=== PATIENT | male | born 1950 | race Hispanic/Latino ===

== ENCOUNTER 2017-12-30 13:46 | Outpatient (CLI) | payer MEDICARE, MEDICAID ==
--- NOTE | 2017-12-30 15:41 | RAD ---
THREE VIEWS RIGHT KNEE: Date: 12-30-17 History: Chronic right knee pain and shoulder pain. FINDINGS: There is tricompartment osteophytosis. There is narrowing of the medial joint compartment. There is a lso suggestion of narrowing of the patellofemoral joint. Very small joint effusion is seen in a supra patellar location. Surgical clips are seen at the medial aspect lower thigh. There are calcifications seen adjacent to the medial femoral condyle, likely related to prior injury. No fracture or dislocation is seen. No other osseous abnormality. IMPRESSION: 1. Osteoarthritis right knee with very small joint effusion present. 2. No acute osseous abnormality right knee. POS: [facility]
--- NOTE | 2017-12-30 15:46 | RAD ---
RIGHT SHOULDER THREE VIEW 12/30/17 HISTORY: Chronic pain. COMPARISON: None. FINDINGS: No acute fracture. No malalignment. Acromioclavicular alignment is normal. Visualized ribs are unrema rkable. There appear to be small erosions of the greater tuberosity likely from underlying interstitial teari ng of the rotator cuff. IMPRESSION: No acute fracture or malalignment. POS: [facility]
== END 2017-12-30 13:47 | disposition home or self-care (01) ==
LOC: MADRAD 13:46
PROVIDERS: ATTEND Orthopaedic Surgery
DX: M25.511 Pain in right shoulder (principal); M25.561 Pain in right knee; M17.11 Unilateral primary osteoarthritis, right knee

== ENCOUNTER 2019-03-31 13:23 | Inpatient (IN) | payer MEDICARE, MEDICAID ==
[2019-03-31] MEDS ORDERED: Dextrose 50% Abboject 50 ML SYRINGE SLOW IVP PRN (16:09)
[2019-03-31] MEDS ORDERED: Dextrose 5% in Water 1,000 ML IV PRN (16:09)
[2019-03-31] MEDS ORDERED: HumaLOG 300 UNITS/3 ML VIAL SC PRN (16:09)
[2019-03-31] MEDS ORDERED: HYDROcodone/Acetaminophen 10/325 mg Tablet PO PRN (17:00)
[2019-03-31] MEDS: HYDROcodone/Acetaminophen 10/325 mg Tablet PO PRN (17:05)
[2019-03-31] MEDS: Carvedilol 6.25 MG TAB PO SCH (17:07)
[2019-03-31] MEDS: metFORMIN 500 MG TAB PO SCH (17:07)
[2019-03-31] MEDS: Atorvastatin Calcium 10 MG TAB PO SCH (20:29)
[2019-03-31] MEDS: Aspirin 81 mg Enteric Coated Tablet PO SCH (20:29)
--- NOTE | 2019-04-01 01:49 | HP ---
PRIMARY CARE PHYSICIAN: Evelia Otero NP in [facility]. ORTHOPEDIC SURGEON: Stanley Portillo MD REASON FOR ADMISSION: Skilled rehab in [facility] after recent surgery. HISTORY OF PRESENT ILLNESS: Mr. Garcia is a very pleasant 68-year-old male with multiple history of chronic medical conditions including hypertension, multivessel CABG, diabetes. He had been having chronic right knee pain for several years. This is associated with left lower extremity deformity. The patient have continued pain and had failed conservative management, so he decided for a total knee replacement. After discussing with his Ortho, Dr. Portillo, the patient underwent right knee arthroplasty for right knee osteoarthritis on 03/28/2019 at [facility]. The patient did well postoperatively with unremarkable postoperative course. Overall, chronic medical conditions have been stable with his chronic medications. Per hospital report, prior to hospital discharge, patient has started walking some. He is weightbearing as tolerated with no issues. Overall, pain is adequately controlled with current pain medications. He was subsequently transferred to [facility] on 03/31/2019 to continue rehab. Labs prior to transfer, hemoglobin 10.8, hematocrit 32.1, WBC 12.3 on 03/31/2019. Baseline CBC on 03/29/2019, WBC 15.2, hemoglobin 11, hematocrit 32.9. When evaluated, the patient reports he is doing fine, no new issues reported at this time. PAST MEDICAL HISTORY: Hypertension, diabetes, multivessel CABG, dyslipidemia, CHF, CAD, status post [place] with cardiogenic shock, status post CABG, obesity 35.1, hypothyroidism, CKD type 2, chronic diastolic heart failure, compensated, ischemic cardiomyopathy with EF of 45% to 50%. Latest echo 2 months ago, unchanged. CAD without angina pectoralis, status post CABG. Depression and anxiety, [place] in 2016. SURGICAL HISTORY: Coronary artery bypass on 12/15/2016, hospitalization [place] on 12/03/2016. FAMILY HISTORY: noncontributory. SOCIAL HISTORY: Former smoker. No alcohol. No illicit drug use. ALLERGIES: PRAVASTATIN, but tolerant to ATORVASTATIN. CURRENT MEDICATIONS: 1. Aspirin 81 mg p.o. b.i.d. 2. Atorvastatin 20 mg p.o. at bedtime. 3. Carvedilol 6.25 mg p.o. b.i.d. 4. Hydrocodone 10/325 mg p.o. 1 to 2 q.4 hours p.r.n. 5. Levothyroxine 75 mcg p.o. q.a.m. 6. Losartan 100 mg p.o. at bedtime. 7. Metformin 1000 mg p.o. b.i.d. 8. Pantoprazole 40 mg p.o. at bedtime. REVIEW OF SYSTEMS: GENERAL: Denies fever, chills, lethargy. Reports general weakness and fatigue. HEENT: Denies acute visual changes or hearing changes. No cold symptoms. CARDIAC: Denies chest pain, palpitations. Reports intermittent leg edema. No dyspnea on exertion. No pain with breathing. RESPIRATORY: No shortness of breath, wheezing, sputum production, or bloody sputum. GASTROINTESTINAL: No nausea, vomiting, abdominal pain, diarrhea, or constipation. GENITOURINARY: No dysuria, hematuria, frequency, urgency, or incontinence. MUSCULOSKELETAL: As per HPI. PSYCHIATRIC: Denies depression, anxiety, or insomnia. ENDOCRINE: No heat or cold intolerance. SKIN: No rashes. No pruritus. No other lesions aside from the postoperative site. PHYSICAL EXAMINATION: VITAL SIGNS: Blood pressure 174/76, temp 99, pulse 68, respirations 20, O2 sats 98% on room air. Weight 187 pounds. Height 5 feet. GENERAL: The patient is awake, alert, and oriented x3. Not in distress. HEENT: Normocephalic, atraumatic. PERRL. Intact EOM. Anicteric sclerae. Oral mucosa is moist. NECK: Supple. No LAD. No JVD. CHEST: Normal excursion. Clear to auscultation bilaterally. CARDIAC: RRR. Normal S1 and S2. ABDOMEN: Soft, obese, nondistended. Normoactive bowel sounds. Nontender. No rebound. No guarding. Negative CVA tenderness bilaterally. EXTREMITIES: Right lower extremity is edematous compared to the left. SKIN: Postoperative site in the right anterior knee is covered with clean dressing. No surrounding erythema. Not warm to touch. Pulses 2+ symmetrically. ASSESSMENT: 1. Deconditioning secondary to general weakness. 2. Status post right total knee replacement on 03/29/2019 for severe arthritis of the right knee. 3. Hypertension. 4. Congestive heart failure, compensated with EF of 45% to 50%. 5. Diabetes type 2, non-insulin dependent. 6. Dyslipidemia. 7. Hypothyroidism. 8. Coronary artery disease, status post coronary artery bypass graft. 9. History of myocardial infarction. 10. Gastroesophageal reflux disease. 11. Unsteady gait. PLAN: 1. The patient is admitted to Swing bed for purposes of skilled rehab. To consult PT/OT for eval and treat. 2. Continue all current medications as modified per list. 3. Incentive spirometry every 4 hours while awake for 2 more weeks. 4. Ice and elevate leg to decrease redness and swelling at the minimum of twice daily for 2 to 4 weeks as needed. 5. Accu-Chek q.a.m. with sliding scale coverage, mild algorithm. 6. Wound Care, Tegaderm Plus 2 pads x2 weeks, changed weekly. 7.DVT prophylaxis with ASA 81 mg BID. 8.Follow up with Dr. Portillo on 04/11/2019 at 1:15 p.m. 9. Further recommendations depending on the hospital course. ESTIMATED LENGTH OF STAY: 2 to 3 weeks. CODE STATUS: Patient reports FULL CODE. Job ID: [id number] [facility]
[2019-04-01] MEDS: HYDROcodone/Acetaminophen 10/325 mg Tablet PO PRN ×2 (05:16→20:22)
[2019-04-01] MEDS: Levothyroxine Sodium 75 MCG TAB PO SCH (05:17)
[2019-04-01] MEDS: metFORMIN 500 MG TAB PO SCH ×2 (08:18→17:20)
[2019-04-01] MEDS: Aspirin 81 mg Enteric Coated Tablet PO SCH ×2 (08:18→20:18)
[2019-04-01] MEDS: Carvedilol 6.25 MG TAB PO SCH ×2 (08:18→17:20)
[2019-04-01] MEDS ORDERED: HYDROcodone/Acetaminophen 10/325 mg Tablet PO PRN ×3 (12:58→18:57)
[2019-04-01] MEDS ORDERED: traMADol HCl 50 MG TAB PO PRN ×3 (12:59→18:58)
[2019-04-01] MEDS ORDERED: Zolpidem Tartrate 5 MG TAB PO PRN (13:00)
[2019-04-01] MEDS: Polyethylene Glycol 3350 17 GM Packet PO PRN (13:35)
[2019-04-01] MEDS: Atorvastatin Calcium 10 MG TAB PO SCH (20:17)
[2019-04-01] MEDS: Senokot S 8.6-50 MG TAB PO SCH (20:17)
[2019-04-01] MEDS: Ferrous Gluconate 324 MG TAB PO SCH (20:17)
[2019-04-01] MEDS: Losartan 25 MG TAB PO SCH (20:17)
[2019-04-02] MEDS: Levothyroxine Sodium 75 MCG TAB PO SCH (05:10)
[2019-04-02] MEDS: traMADol HCl 50 MG TAB PO PRN ×2 (05:10→16:02)
[2019-04-02] MEDS: Aspirin 81 mg Enteric Coated Tablet PO SCH ×2 (08:42→20:42)
[2019-04-02] MEDS: metFORMIN 500 MG TAB PO SCH ×2 (08:42→17:15)
[2019-04-02] MEDS: Ferrous Gluconate 324 MG TAB PO SCH ×2 (08:43→20:43)
[2019-04-02] MEDS: Spironolactone 25 MG TAB PO SCH (08:43)
[2019-04-02] MEDS: Senokot S 8.6-50 MG TAB PO SCH ×2 (08:43→20:42)
[2019-04-02] MEDS: Carvedilol 6.25 MG TAB PO SCH ×2 (08:43→17:14)
[2019-04-02] MEDS: HYDROcodone/Acetaminophen 10/325 mg Tablet PO PRN (20:41)
[2019-04-02] MEDS: Atorvastatin Calcium 10 MG TAB PO SCH (20:42)
[2019-04-02] MEDS: Losartan 25 MG TAB PO SCH (20:42)
[2019-04-03] MEDS: HYDROcodone/Acetaminophen 10/325 mg Tablet PO PRN ×3 (03:28→20:05)
[2019-04-03] MEDS: Levothyroxine Sodium 75 MCG TAB PO SCH (05:33)
[2019-04-03] MEDS: Polyethylene Glycol 3350 17 GM Packet PO PRN (07:30)
[2019-04-03] MEDS: Spironolactone 25 MG TAB PO SCH (07:30)
[2019-04-03] MEDS: Senokot S 8.6-50 MG TAB PO SCH ×2 (07:30→21:20)
[2019-04-03] MEDS: Ferrous Gluconate 324 MG TAB PO SCH ×2 (07:30→21:15)
[2019-04-03] MEDS: metFORMIN 500 MG TAB PO SCH ×2 (07:30→17:19)
[2019-04-03] MEDS: Aspirin 81 mg Enteric Coated Tablet PO SCH ×2 (07:31→21:18)
[2019-04-03] MEDS: Carvedilol 6.25 MG TAB PO SCH ×2 (07:31→17:19)
[2019-04-03] MEDS ORDERED: Fleet Enema 133 ML BOT FS SCH (19:45)
[2019-04-03] MEDS: Losartan 25 MG TAB PO SCH (21:00)
[2019-04-03] MEDS: Atorvastatin Calcium 10 MG TAB PO SCH (21:19)
[2019-04-04] MEDS: Levothyroxine Sodium 75 MCG TAB PO SCH (05:59)
[2019-04-04] MEDS: HYDROcodone/Acetaminophen 10/325 mg Tablet PO PRN ×3 (06:02→22:14)
[2019-04-04] MEDS: Polyethylene Glycol 3350 17 GM Packet PO PRN (08:20)
[2019-04-04] MEDS: Senokot S 8.6-50 MG TAB PO SCH ×2 (08:21→21:06)
[2019-04-04] MEDS: Spironolactone 25 MG TAB PO SCH (08:21)
[2019-04-04] MEDS: Ferrous Gluconate 324 MG TAB PO SCH ×2 (08:21→21:05)
[2019-04-04] MEDS: Aspirin 81 mg Enteric Coated Tablet PO SCH ×2 (08:22→21:05)
[2019-04-04] MEDS: metFORMIN 500 MG TAB PO SCH ×2 (08:22→17:20)
[2019-04-04] MEDS: Carvedilol 6.25 MG TAB PO SCH ×2 (08:22→17:20)
[2019-04-04] MEDS: Losartan 25 MG TAB PO SCH (21:05)
[2019-04-04] MEDS: Atorvastatin Calcium 10 MG TAB PO SCH (21:05)
[2019-04-05] MEDS: Levothyroxine Sodium 75 MCG TAB PO SCH (05:24)
[2019-04-05] MEDS: Polyethylene Glycol 3350 17 GM Packet PO PRN (07:55)
[2019-04-05] MEDS: Senokot S 8.6-50 MG TAB PO SCH ×2 (07:56→20:22)
[2019-04-05] MEDS: metFORMIN 500 MG TAB PO SCH ×2 (07:56→16:14)
[2019-04-05] MEDS: Carvedilol 6.25 MG TAB PO SCH ×2 (07:57→16:14)
[2019-04-05] MEDS: Ferrous Gluconate 324 MG TAB PO SCH ×2 (07:57→20:21)
[2019-04-05] MEDS: Aspirin 81 mg Enteric Coated Tablet PO SCH ×2 (07:58→20:21)
[2019-04-05] MEDS: Spironolactone 25 MG TAB PO SCH (07:58)
[2019-04-05] MEDS: HYDROcodone/Acetaminophen 10/325 mg Tablet PO PRN ×2 (11:49→16:13)
[2019-04-05] MEDS: Losartan 25 MG TAB PO SCH (20:21)
[2019-04-05] MEDS: Atorvastatin Calcium 10 MG TAB PO SCH (20:21)
[2019-04-06] MEDS: HYDROcodone/Acetaminophen 10/325 mg Tablet PO PRN ×3 (02:04→20:29)
[2019-04-06] MEDS: Levothyroxine Sodium 75 MCG TAB PO SCH (04:59)
[2019-04-06] MEDS: Polyethylene Glycol 3350 17 GM Packet PO PRN (08:19)
[2019-04-06] MEDS: Spironolactone 25 MG TAB PO SCH (08:19)
[2019-04-06] MEDS: Senokot S 8.6-50 MG TAB PO SCH ×2 (08:19→20:28)
[2019-04-06] MEDS: metFORMIN 500 MG TAB PO SCH ×2 (08:20→17:23)
[2019-04-06] MEDS: Aspirin 81 mg Enteric Coated Tablet PO SCH ×2 (08:20→20:28)
[2019-04-06] MEDS: Carvedilol 6.25 MG TAB PO SCH ×2 (08:20→17:23)
[2019-04-06] MEDS: Ferrous Gluconate 324 MG TAB PO SCH ×2 (08:20→20:28)
[2019-04-06] MEDS: Atorvastatin Calcium 10 MG TAB PO SCH (20:28)
[2019-04-06] MEDS: Losartan 25 MG TAB PO SCH (20:28)
[2019-04-07] MEDS: Levothyroxine Sodium 75 MCG TAB PO SCH (05:20)
[2019-04-07] MEDS: Ferrous Gluconate 324 MG TAB PO SCH ×2 (08:07→20:49)
[2019-04-07] MEDS: Spironolactone 25 MG TAB PO SCH (08:07)
[2019-04-07] MEDS: Senokot S 8.6-50 MG TAB PO SCH ×2 (08:07→20:50)
[2019-04-07] MEDS: Aspirin 81 mg Enteric Coated Tablet PO SCH ×2 (08:07→20:49)
[2019-04-07] MEDS: metFORMIN 500 MG TAB PO SCH ×2 (08:07→17:38)
[2019-04-07] MEDS: Carvedilol 6.25 MG TAB PO SCH ×2 (08:07→17:38)
[2019-04-07] MEDS: HYDROcodone/Acetaminophen 10/325 mg Tablet PO PRN (11:30)
[2019-04-07] MEDS: Atorvastatin Calcium 10 MG TAB PO SCH (20:49)
[2019-04-07] MEDS: Losartan 25 MG TAB PO SCH (20:50)
[2019-04-08] MEDS: HYDROcodone/Acetaminophen 10/325 mg Tablet PO PRN ×2 (00:15→13:17)
[2019-04-08] MEDS: Levothyroxine Sodium 75 MCG TAB PO SCH (05:26)
[2019-04-08] MEDS: Senokot S 8.6-50 MG TAB PO SCH ×2 (08:40→21:01)
[2019-04-08] MEDS: metFORMIN 500 MG TAB PO SCH ×2 (08:40→17:06)
[2019-04-08] MEDS: Spironolactone 25 MG TAB PO SCH (08:40)
[2019-04-08] MEDS: Aspirin 81 mg Enteric Coated Tablet PO SCH ×2 (08:40→21:00)
[2019-04-08] MEDS: Ferrous Gluconate 324 MG TAB PO SCH ×2 (08:41→21:01)
[2019-04-08] MEDS: Carvedilol 6.25 MG TAB PO SCH ×2 (08:41→17:06)
[2019-04-08] MEDS: Losartan 25 MG TAB PO SCH (21:00)
[2019-04-08] MEDS: Atorvastatin Calcium 10 MG TAB PO SCH (21:01)
[2019-04-09] MEDS: HYDROcodone/Acetaminophen 10/325 mg Tablet PO PRN ×2 (04:57→20:55)
[2019-04-09] MEDS: Levothyroxine Sodium 75 MCG TAB PO SCH (04:57)
[2019-04-09] MEDS: Spironolactone 25 MG TAB PO SCH (08:33)
[2019-04-09] MEDS: Ferrous Gluconate 324 MG TAB PO SCH ×2 (08:33→20:54)
[2019-04-09] MEDS: metFORMIN 500 MG TAB PO SCH ×2 (08:33→17:03)
[2019-04-09] MEDS: Carvedilol 6.25 MG TAB PO SCH ×2 (08:33→17:04)
[2019-04-09] MEDS: Aspirin 81 mg Enteric Coated Tablet PO SCH ×2 (08:33→20:49)
[2019-04-09] MEDS: Senokot S 8.6-50 MG TAB PO SCH ×2 (08:33→20:51)
[2019-04-09] MEDS: Atorvastatin Calcium 10 MG TAB PO SCH (20:49)
[2019-04-09] MEDS: Losartan 25 MG TAB PO SCH (20:51)
[2019-04-10] MEDS: Levothyroxine Sodium 75 MCG TAB PO SCH (05:51)
[2019-04-10] MEDS: Aspirin 81 mg Enteric Coated Tablet PO SCH ×2 (09:00→20:19)
[2019-04-10] MEDS: metFORMIN 500 MG TAB PO SCH ×2 (09:00→17:10)
[2019-04-10] MEDS: Spironolactone 25 MG TAB PO SCH (09:00)
[2019-04-10] MEDS: Senokot S 8.6-50 MG TAB PO SCH ×2 (09:00→20:17)
[2019-04-10] MEDS: Carvedilol 6.25 MG TAB PO SCH ×2 (09:00→17:10)
[2019-04-10] MEDS: Ferrous Gluconate 324 MG TAB PO SCH ×2 (09:00→20:18)
[2019-04-10 17:44] VITALS: BMI 29.5
[2019-04-10] MEDS: Atorvastatin Calcium 10 MG TAB PO SCH (20:17)
[2019-04-10] MEDS: Losartan 25 MG TAB PO SCH (20:18)
[2019-04-10] MEDS: HYDROcodone/Acetaminophen 10/325 mg Tablet PO PRN (20:24)
[2019-04-11] MEDS: Levothyroxine Sodium 75 MCG TAB PO SCH (05:35)
[2019-04-11] MEDS: Spironolactone 25 MG TAB PO SCH (08:08)
[2019-04-11] MEDS: Aspirin 81 mg Enteric Coated Tablet PO SCH ×2 (08:08→20:50)
[2019-04-11] MEDS: Ferrous Gluconate 324 MG TAB PO SCH ×2 (08:09→20:51)
[2019-04-11] MEDS: metFORMIN 500 MG TAB PO SCH ×2 (08:09→16:48)
[2019-04-11] MEDS: Carvedilol 6.25 MG TAB PO SCH ×2 (08:09→16:48)
[2019-04-11] MEDS: Senokot S 8.6-50 MG TAB PO SCH ×2 (08:09→20:51)
[2019-04-11] MEDS: HYDROcodone/Acetaminophen 10/325 mg Tablet PO PRN ×2 (11:34→20:53)
[2019-04-11] MEDS: Losartan 25 MG TAB PO SCH (20:50)
[2019-04-11] MEDS: Atorvastatin Calcium 10 MG TAB PO SCH (20:50)
[2019-04-12] MEDS: Levothyroxine Sodium 75 MCG TAB PO SCH (05:33)
[2019-04-12] MEDS: metFORMIN 500 MG TAB PO SCH ×2 (08:41→17:24)
[2019-04-12] MEDS: Aspirin 81 mg Enteric Coated Tablet PO SCH ×2 (08:42→21:37)
[2019-04-12] MEDS: Spironolactone 25 MG TAB PO SCH (08:42)
[2019-04-12] MEDS: Ferrous Gluconate 324 MG TAB PO SCH ×2 (08:42→21:37)
[2019-04-12] MEDS: Carvedilol 6.25 MG TAB PO SCH ×2 (08:42→17:24)
[2019-04-12] MEDS: Senokot S 8.6-50 MG TAB PO SCH ×2 (08:42→21:37)
[2019-04-12] MEDS: HYDROcodone/Acetaminophen 10/325 mg Tablet PO PRN ×2 (09:50→21:37)
[2019-04-12] MEDS: Polyethylene Glycol 3350 17 GM Packet PO PRN (21:36)
[2019-04-12] MEDS: Losartan 25 MG TAB PO SCH (21:37)
[2019-04-12] MEDS: Atorvastatin Calcium 10 MG TAB PO SCH (21:37)
[2019-04-13] MEDS: Levothyroxine Sodium 75 MCG TAB PO SCH (05:28)
[2019-04-13 06:55] VITALS: BP 131/70; TEMP 97.3
[2019-04-13] MEDS: metFORMIN 500 MG TAB PO SCH (09:01)
[2019-04-13] MEDS: Spironolactone 25 MG TAB PO SCH (09:02)
[2019-04-13] MEDS: Carvedilol 6.25 MG TAB PO SCH (09:02)
[2019-04-13] MEDS: Aspirin 81 mg Enteric Coated Tablet PO SCH (09:02)
[2019-04-13] MEDS: Ferrous Gluconate 324 MG TAB PO SCH (09:02)
[2019-04-13] MEDS: Senokot S 8.6-50 MG TAB PO SCH (09:02)
== END 2019-04-13 12:20 | disposition home or self-care (01) | DRG 560 ==
LOC: MADMS 13:51
PROVIDERS: ADMIT Family Medicine; ATTEND Family Medicine
DX: Z47.1 Aftercare following joint replacement surgery (principal); I50.22 Chronic systolic (congestive) heart failure; E78.5 Hyperlipidemia, unspecified; I25.10 Atherosclerotic heart disease of native coronary artery without angina pectoris; E03.9 Hypothyroidism, unspecified; E11.22 Type 2 diabetes mellitus with diabetic chronic kidney disease; I25.5 Ischemic cardiomyopathy; F32.9 Major depressive disorder, single episode, unspecified; F41.9 Anxiety disorder, unspecified; R53.81 Other malaise; R53.1 Weakness; K21.9 Gastro-esophageal reflux disease without esophagitis; R26.81 Unsteadiness on feet; I25.2 Old myocardial infarction; Z95.1 Presence of aortocoronary bypass graft; Z87.891 Personal history of nicotine dependence; Z88.8 Allergy status to other drugs, medicaments and biological substances; Z79.82 Long term (current) use of aspirin; Z79.84 Long term (current) use of oral hypoglycemic drugs
CPT/HCPCS: 36416